=== PATIENT | female | born 1995 | race Two or more races ===

== ENCOUNTER 2017-12-19 13:27 | Outpatient (CLI) | payer OTHER ==
[~2017-12-19 13:27] MED LIST: LUTERA1 TAB PO
== END 2017-12-19 13:35 | disposition home or self-care (01) ==
LOC: SONOGRAMA 13:27
DX: N60.11 Diffuse cystic mastopathy of right breast (principal); N60.12 Diffuse cystic mastopathy of left breast

== ENCOUNTER 2018-07-06 08:25 | Outpatient (CLI) | payer OTHER | END 2018-07-06 08:29 | disposition home or self-care (01) | LOC: SONOGRAMA 08:25 | DX: N64.89 Other specified disorders of breast (principal) ==

== ENCOUNTER 2018-08-11 07:19 | Day surgery (SDC) | payer OTHER | END 2018-08-11 18:40 | disposition home or self-care (01) | LOC: CIR.AMB 07:19 | DX: D24.1 Benign neoplasm of right breast (principal) ==

== ENCOUNTER 2019-09-24 12:34 | Outpatient (CLI) | payer OTHER | END 2019-09-24 12:36 | disposition home or self-care (01) | LOC: SONOGRAMA 12:34 | DX: N60.11 Diffuse cystic mastopathy of right breast (principal); N60.12 Diffuse cystic mastopathy of left breast ==

== ENCOUNTER 2020-11-28 09:20 | Outpatient (CLI) | payer OTHER | END 2020-11-28 09:53 | disposition home or self-care (01) | LOC: NST 09:20 | PROVIDERS: ATTEND Obstetrics & Gynecology | DX: Z34.82 Encounter for supervision of other normal pregnancy, second trimester (principal) ==

== ENCOUNTER 2020-12-04 08:05 | Outpatient (CLI) | payer OTHER | END 2020-12-04 09:00 | disposition home or self-care (01) | LOC: NST 08:05 | PROVIDERS: ATTEND Obstetrics & Gynecology Maternal & Fetal Medicine | DX: Z34.83 Encounter for supervision of other normal pregnancy, third trimester (principal) ==

== ENCOUNTER 2020-12-09 07:47 | Outpatient (CLI) | payer OTHER | END 2020-12-09 08:03 | disposition home or self-care (01) | LOC: NST 07:47 | PROVIDERS: ATTEND Obstetrics & Gynecology Maternal & Fetal Medicine | DX: Z34.83 Encounter for supervision of other normal pregnancy, third trimester (principal) ==